=== PATIENT | male | born 1950 | race Caucasian/White ===

== ENCOUNTER → 2025-06-04 11:02 | Outpatient (REF) | payer MEDICARE, SELFPAY ==
[2025-06-04 12:39] LABS: Blood Urea Nitrogen 16 mg/dl (9-20); Calcium 10.4 mg/dl (8.4-10.2); Carbon Dioxide 26 mmol/L (22-30); Chloride 108 mmol/L (98-107); Glucose 91 mg/dl (70-99); Potassium 4.0 mmol/L (3.5-5.1); Sodium 137 mmol/L (135-145); eGFR > 60.00
== END ==
LOC: REG 11:02
PROVIDERS: ATTENDING PHYSICIAN Surgery Vascular Surgery; FAMILY PHYSICIAN Family Medicine
DX: I73.9 Peripheral vascular disease, unspecified (principal)
CPT/HCPCS: 36415; 80048

== ENCOUNTER → 2025-06-09 08:38 | Outpatient (REF) | payer MEDICARE, SELFPAY | LOC: RAD 08:38 | PROVIDERS: ATTENDING PHYSICIAN Surgery Vascular Surgery; FAMILY PHYSICIAN Family Medicine | DX: I73.9 Peripheral vascular disease, unspecified (principal) | CPT/HCPCS: 75635; Q9967 ==

== ENCOUNTER 2025-07-06 09:44 | Outpatient (RCR) | payer MEDICARE, SELFPAY ==
[2025-06-29 09:46] LABS: Glucose - Point of Care 94 mg/dl (70-99)
[2025-06-29 10:25] LABS: Glucose - Point of Care 99 mg/dl (70-99)
[2025-07-01 08:43] LABS: Glucose - Point of Care 93 mg/dl (70-99)
[2025-07-01 09:40] LABS: Glucose - Point of Care 84 mg/dl (70-99)
[2025-07-06 08:36] LABS: Glucose - Point of Care 141 mg/dl (70-99)
[2025-07-06 09:25] LABS: Glucose - Point of Care 96 mg/dl (70-99)
== END 2025-07-06 23:59 | disposition home or self-care (01) ==
LOC: CRHB 09:44
PROVIDERS: ATTENDING PHYSICIAN Surgery Vascular Surgery
DX: I70.211 Atherosclerosis of native arteries of extremities with intermittent claudication, right leg (principal); I70.213 Atherosclerosis of native arteries of extremities with intermittent claudication, bilateral legs (principal)
CPT/HCPCS: 82962; 93668

== ENCOUNTER 2025-08-10 08:30 | Outpatient (RCR) | payer MEDICARE, SELFPAY ==
[2025-07-14 13:00] LABS: Glucose - Point of Care 99 mg/dl (70-99)
[2025-07-14 13:02] LABS: Glucose - Point of Care 102 mg/dl (70-99)
[2025-07-22 08:32] LABS: Glucose - Point of Care 104 mg/dl (70-99)
[2025-07-22 09:14] LABS: Glucose - Point of Care 89 mg/dl (70-99)
[2025-07-27 08:33] LABS: Glucose - Point of Care 104 mg/dl (70-99)
[2025-07-27 09:15] LABS: Glucose - Point of Care 84 mg/dl (70-99)
[2025-07-29 08:39] LABS: Glucose - Point of Care 122 mg/dl (70-99)
== END 2025-08-10 23:59 | disposition home or self-care (01) ==
LOC: CRHB 08:30
PROVIDERS: ATTENDING PHYSICIAN Surgery Vascular Surgery
DX: I70.213 Atherosclerosis of native arteries of extremities with intermittent claudication, bilateral legs (principal); I70.211 Atherosclerosis of native arteries of extremities with intermittent claudication, right leg
CPT/HCPCS: 82962; 93668